=== PATIENT | female | born 1945 | race Caucasian/White ===

== ENCOUNTER 2022-11-23 08:14 | Emergency (ER) | payer BC, MEDICAID, MEDICARE ==
[~2022-11-23] VITALS: Ht 167.6 cm; Wt 59.1 kg
[~2022-11-23 08:14] MED LIST: CLOP75TA34 PO; METF-438 PO; MSC30T PO; REPA1TAB22 CORPAK
[2022-11-23 15:32] LABS: BASOPHILS # (AUTO) 0.1 X10'3 (0-0.2); EOSINOPHILS % (AUTO) 0.4 % (0-6); HEMATOCRIT 38.7 % (35.0-45.0); LYMPHOCYTES # (AUTO) 3.2 X10'3 (1.1-4.8); LYMPHOCYTES % (AUTO) 51.9 % (21-51); MEAN CORPUSCULAR HEMOGLOBIN 30.7 PG (27.0-31.0); MEAN CORPUSCULAR HGB CONC 33.7 g/dL (33.0-36.5); MEAN CORPUSCULAR VOLUME 91.1 FL (78-98); MEAN PLATELET VOLUME 8.2 FL (7.4-10.4); MONOCYTES # (AUTO) 0.5 X10'3 (0-0.9); MONOCYTES % (AUTO) 8.2 % (2-12); NEUTROPHILS # (AUTO) 2.4 X10'3 (1.8-7.7); NEUTROPHILS % (AUTO) 38.5 % (42-75); PLATELET COUNT 220 X10'3 (140-440); RED BLOOD COUNT 4.25 X10'6 (4.20-5.60); RED CELL DISTRIBUTION WIDTH 13.8 % (11.5-14.5); WHITE BLOOD COUNT 6.3 X10'3 (4.5-11.0)
[2022-11-23 15:48] LABS: CLARITY,URINE SLIGHTLY CLOUDY (Clear); COLOR,URINE YELLOW (Yellow); GLUCOSE, URINE NEGATIVE (Neg); KETONES,URINE NEGATIVE (Neg); LEUKOCYTE ESTERASE ,URINE TRACE (Neg); NITRITES, URINE NEGATIVE (Neg); OCCULT BLOOD,URINE NEGATIVE (Neg); PH,URINE 5.5 (4.8-8.0); PROTEIN,URINE NEGATIVE (Neg); UROBILINOGEN,URINE 0.2 E.U/dL (0.2-1.0)
[2022-11-23 15:53] LABS: UA COLLECTION TYPE NON-SPECIFIED
[2022-11-23 15:54] LABS: MUCUS STRANDS FEW /LPF (Neg); SQUAMOUS EPITHELIAL CELL,UR MODERATE /LPF (FEW)
[2022-11-23 15:55] LABS: BACTERIA,URINE FEW /HPF (Neg); RBC,URINE 0-2 /HPF (0-2); WBC CLUMPS,URINE FEW /HPF (NEGATIVE)
[2022-11-23 15:57] LABS: ALANINE AMINOTRANSFERASE 26 U/L (12-78); ALBUMIN 3.5 G/DL (3.4-5.0); ALBUMIN/GLOBULIN RATIO 0.9 (1.1-1.5); ALKALINE PHOSPHATASE 51 IU/L (46-116); ANION GAP 10 (8-16); ASPARTATE AMINO TRANSFERASE 40 U/L (10-37); BILIRUBIN,TOTAL 0.3 MG/DL (0.1-1.0); BLOOD UREA NITROGEN 41 MG/DL (7-18); CALCIUM 8.5 MG/DL (8.5-10.1); CHLORIDE 98 MMOL/L (99-107); CREATININE 1.95 MG/DL (0.40-0.90); GLUCOSE 199 MG/DL (70-104); MAGNESIUM 1.8 MG/DL (1.5-2.4); POTASSIUM 4.1 MMOL/L (3.5-5.1); SODIUM 133 MMOL/L (135-145); TOTAL CARBON DIOXIDE 24.8 MMOL/L (24-32); TOTAL PROTEIN 7.2 G/DL (6.4-8.2); eGFR 25 ML/MIN
[2022-11-23] MEDS ORDERED: AZIT-83 PO (16:10)
[2022-11-23 16:18] VITALS: BP 100/62
== END 2022-11-23 16:20 | disposition home or self-care (01) ==
LOC: ER 08:15
DX: R05.9 Cough, unspecified (principal); N39.0 Urinary tract infection, site not specified; E11.9 Type 2 diabetes mellitus without complications; Z88.0 Allergy status to penicillin; Z88.1 Allergy status to other antibiotic agents
CPT/HCPCS: 36415; 71045; 80053; 81001; 82948; 83605; 83735; 83880; 84145; 85025; 87040; 87077; 87088; 87186; 93005; 99285

== ENCOUNTER 2023-05-12 11:52 | Emergency (ER) | payer BC ==
[~2023-05-12] VITALS: Ht 172.7 cm; Wt 68.2 kg
[~2023-05-12 11:52] MED LIST changes: +ASPI-1071 PO; +ATOR40TA71 PO; +COR3.125T PO; +INSU200I SQ; +LANTUS SQ; -METF-438 PO; -MSC30T PO; +NEED-136 SQ; -REPA1TAB22 CORPAK
[2023-05-12 13:25] LABS: ALANINE AMINOTRANSFERASE 24 U/L (12-78); ALBUMIN 3.2 G/DL (3.4-5.0); ALBUMIN/GLOBULIN RATIO 0.8 (1.1-1.5); ALKALINE PHOSPHATASE 62 IU/L (46-116); ANION GAP 11 (8-16); ASPARTATE AMINO TRANSFERASE 20 U/L (10-37); BILIRUBIN,TOTAL 0.6 MG/DL (0.1-1.0); BLOOD UREA NITROGEN 31 MG/DL (7-18); BUN/CREATININE RATIO 16.1 (10.0-20.0); CHLORIDE 102 MMOL/L (99-107); CREATININE 1.92 MG/DL (0.40-0.90); GLUCOSE 261 MG/DL (70-104); POTASSIUM 4.1 MMOL/L (3.5-5.1); SODIUM 137 MMOL/L (135-145); TOTAL CARBON DIOXIDE 24.2 MMOL/L (24-32); TOTAL PROTEIN 7.4 G/DL (6.4-8.2); eGFR 25 ML/MIN
[2023-05-12 14:25] LABS: BASOPHILS % (AUTO) 0.2 % (0-1); EOSINOPHILS # (AUTO) 0.1 X10'3 (0-0.9); EOSINOPHILS % (AUTO) 0.7 % (0-6); HEMATOCRIT 28.1 % (35.0-45.0); LYMPHOCYTES # (AUTO) 1.9 X10'3 (1.1-4.8); LYMPHOCYTES % (AUTO) 15.3 % (21-51); MEAN CORPUSCULAR HEMOGLOBIN 28.6 PG (27.0-31.0); MEAN CORPUSCULAR HGB CONC 32.2 g/dL (33.0-36.5); MEAN CORPUSCULAR VOLUME 88.9 FL (78-98); MEAN PLATELET VOLUME 8.1 FL (7.4-10.4); MONOCYTES # (AUTO) 1.3 X10'3 (0-0.9); MONOCYTES % (AUTO) 10.1 % (2-12); NEUTROPHILS # (AUTO) 9.2 X10'3 (1.8-7.7); NEUTROPHILS % (AUTO) 73.7 % (42-75); PLATELET COUNT 352 X10'3 (140-440); RED BLOOD COUNT 3.16 X10'6 (4.20-5.60); RED CELL DISTRIBUTION WIDTH 16.7 % (11.5-14.5); WHITE BLOOD COUNT 12.5 X10'3 (4.5-11.0)
--- NOTE | 2023-05-12 15:50 | NUR ---
PT SON GAVE PT FOOD WITHOUT NOTIFYING RN. RN WILL CHECK HER SUGAR AND NOTIFY DR PUGA. PT TAKEN TO XRAY AT THIS TIME.
[2023-05-12] MEDS: HYDROcodone/acetaminophen 5mg/325mg tablet PO ONE ×2 (16:28→16:29)
[2023-05-12 16:30] VITALS: BP 119/62
--- NOTE | 2023-05-12 17:10 | NUR ---
RN CHECKED BG WITH GLUCOMETER AND IT WAS 257. RN NOTIFIED DR PUGA. PER DR PUGA NO ORDS AT THIS TIME. RN DOES NOT SEE THE LEVEL REGISTERED EVEN THOUGH THE GLUCOMETER WAS DOCKED.
--- NOTE | 2023-05-12 17:37 | NUR ---
PT REFUSES IV UNLESS IT IS NECESSARY. RN WILL WAIT FOR XRAY RESULTS. PT ALSO REFUSING PAIN MEDICATION.
[2023-05-12] MEDS ORDERED: HYDR-3965 PO (18:27)
== END 2023-05-12 19:30 | disposition home or self-care (01) ==
LOC: ER 11:53
DX: S40.012A Contusion of left shoulder, initial encounter (principal); I11.0 Hypertensive heart disease with heart failure; E11.9 Type 2 diabetes mellitus without complications; J44.9 Chronic obstructive pulmonary disease, unspecified; F03.90 Unspecified dementia, unspecified severity, without behavioral disturbance, psychotic disturbance, mood disturbance, and anxiety; Z88.8 Allergy status to other drugs, medicaments and biological substances; Z88.0 Allergy status to penicillin; Z79.82 Long term (current) use of aspirin; W18.39XA Other fall on same level, initial encounter; Y93.89 Activity, other specified; Y92.89 Other specified places as the place of occurrence of the external cause; Y99.8 Other external cause status
CPT/HCPCS: 29105; 36415; 71045; 73030; 73060; 73070; 73090; 73100; 73120; 80053; 82948; 84145; 85025; 99284